=== PATIENT | female | born 1960 | race Caucasian/White ===

== ENCOUNTER 2016-09-12 12:28 | Emergency (ER) | payer OTHER ==
[2016-09-12 12:28] VITALS: BMI 27.4
[2016-09-12 12:47] VITALS: RESP 20
--- NOTE | 2016-09-12 13:13 | C.PDOC ---
History Of Present Illness 56 y/o female presents to the ED with complains of worsening arthritis to hands and feet for the last 2 weeks. Pt has taken motrin without relief. Pt also notes discoloration and bumps to hands intermittently, not present now. Pt saw Dr Palacios 1 week ago, had labs done, scheduled for follow up today for reevaluation, but decided to come to the ED Pt denies fever, chills, or any other complaints. Time Seen by Provider: 09/12/16 12:58 Chief Complaint (Nursing): Upper Extremity Problem/Injury History Per: Patient History/Exam Limitations: no limitations Onset/Duration Of Symptoms: Days Current Symptoms Are (Timing): Worse Quality: "Pain" Severity: Moderate Recent travel outside of the [place]: No Past Medical History Reviewed: Historical Data, Nursing Documentation, Vital Signs Vital Signs: Last Vital Signs Temp 97.9 F 09/12/16 14:20 Pulse 87 09/12/16 14:20 Resp 20 09/12/16 14:20 BP 117/84 09/12/16 14:20 Pulse Ox 97 09/12/16 14:33 - Medical History PMH: Hypercholesterolemia, Hypothyroidism, Rheumatoid Arthritis (Methtraxate in the past) Surgical History: Tonsillectomy - [facility] Procedures ANESTH INJEC PERIPH NERV (11/02/12) COLONOSCOPY (10/21/13) ESOPHAGOGASTRODUODENOSCOPY [EGD] W/CLOSED BIOPSY (10/21/13) Family History: States: Unknown Family Hx - Social History Hx Tobacco Use: No Hx Alcohol Use: No Hx Substance Use: No - Immunization History Hx Tetanus Toxoid Vaccination: Yes Hx Influenza Vaccination: Yes Hx Pneumococcal Vaccination: No Review Of Systems Except As Marked, All Systems Reviewed And Found Negative. Constitutional: Negative for: Fever Musculoskeletal: Positive for: Other (arthritic bilateral hand and feet pain) Skin: Positive for: Other (discoloration/bumps on hands, intermittently) Physical Exam - Physical Exam Appears: Non-toxic, No Acute Distress Skin: Warm, Dry, No Rash Head: Atraumatic, Normacephalic Chest: Symmetrical Cardiovascular: Rhythm Regular, No Murmur Respiratory: Normal Breath Sounds, No Rales, No Rhonchi, No Wheezing Extremity: Normal ROM, No Deformity, Swelling (slight swelling to bilateral hands with diffuse tenderness) Neurological/Psych: Oriented x3, Normal Speech, No Normal Motor (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 Discussed need to see Suzanne and startdisease modifying medications again; patient agrees to try and keep appointment today. Disposition Counseled Patient/Family Regarding: Diagnosis, Need For Followup - Disposition Referrals: Jac Palacios MD [Staff Provider] - Disposition: HOME/ ROUTINE Disposition Time: 13:10 Condition: GOOD Additional Instructions: Keep apt with dr Palacios today Prescriptions: Naproxen [Naprosyn] 1 tab PO BID PRN #25 tab PRN Reason: Pain Famotidine [Pepcid] 1 tab PO BID #30 tab Instructions: Rheumatoid Arthritis (ED) - Clinical Impression Clinical Impression: Rheumatoid arthritis flare - Scribe Statement The provider has reviewed the documentation as recorded by the Imelda Hanson Provider Attestation: All medical record entries made by the Brianaibe were at my direction and personally dictated by me. I have reviewed the chart and agree that the record accurately reflects my personal performance of the history, physical exam, medical decision making, and the department course for this patient. I have also personally directed, reviewed, and agree with the discharge instructions and disposition.
[2016-09-12 14:21] VITALS: BP 117/84; PULSE 87; TEMP 97.9
[2016-09-12 14:27] VITALS: O2SAT 97
== END 2016-09-12 14:27 | disposition home or self-care (01) ==
LOC: C.ER 12:28
DX: M06.9 Rheumatoid arthritis, unspecified (principal)
CPT/HCPCS: 96372; 99284; J1885